=== PATIENT | male | born 1960 | race Caucasian/White ===

== ENCOUNTER 2024-05-14 06:24 | Day surgery (SDC) | payer OTHER, SELFPAY | END 2024-05-14 11:49 | disposition home or self-care (01) | LOC: GI 06:24 | PROVIDERS: ATTENDING PHYSICIAN Internal Medicine Gastroenterology | DX: Z12.11 Encounter for screening for malignant neoplasm of colon (principal); K64.8 Other hemorrhoids | CPT/HCPCS: G0121 ==

== ENCOUNTER → 2025-03-25 07:12 | Outpatient (REF) | payer BC, SELFPAY | LOC: RAD 07:12 | PROVIDERS: ATTENDING PHYSICIAN Nurse Practitioner Family | DX: R19.09 Other intra-abdominal and pelvic swelling, mass and lump (principal) | CPT/HCPCS: 76882 ==

== ENCOUNTER → 2025-04-06 07:58 | Outpatient (REF) | payer BC, SELFPAY | LOC: RAD 07:58 | PROVIDERS: ATTENDING PHYSICIAN Nurse Practitioner Family | DX: R19.09 Other intra-abdominal and pelvic swelling, mass and lump (principal) | CPT/HCPCS: 72194; Q9967 ==

== ENCOUNTER → 2025-04-28 07:15 | Outpatient (REF) | payer BC, SELFPAY | LOC: RAD 07:15 | PROVIDERS: ATTENDING PHYSICIAN Surgery; FAMILY PHYSICIAN Nurse Practitioner Family | DX: R19.09 Other intra-abdominal and pelvic swelling, mass and lump (principal) | CPT/HCPCS: 73706; Q9967 ==